=== PATIENT | male | born 1945 | race Caucasian/White ===

== ENCOUNTER 2021-01-29 10:36 | Day surgery (SDC) | payer OTHER, BC ==
[2021-01-27 15:59] VITALS: BMI 22.8
[2021-01-29] MEDS ORDERED: PROPOFOL 20 ML ONE (11:42)
[2021-01-29 12:06] VITALS: TEMP 98.2
[2021-01-29 13:39] VITALS: BP 122/52; PULSE 62
== END 2021-01-29 13:00 | disposition home or self-care (01) ==
LOC: FASU-ENDO 10:36
PROVIDERS: ATTEND Internal Medicine Gastroenterology
PROC: 0DBL8ZX Excision of Transverse Colon, Via Natural or Artificial Opening Endoscopic, Diagnostic (ICD-10-PCS; 2021-01-29)
PROC: 0DBM8ZX Excision of Descending Colon, Via Natural or Artificial Opening Endoscopic, Diagnostic (ICD-10-PCS; 2021-01-29)
PROC: 0DBK8ZX Excision of Ascending Colon, Via Natural or Artificial Opening Endoscopic, Diagnostic (ICD-10-PCS; principal; 2021-01-29 11:38)
DX: K63.89 Other specified diseases of intestine (principal); K52.839 Microscopic colitis, unspecified; K64.1 Second degree hemorrhoids; R19.7 Diarrhea, unspecified
CPT/HCPCS: 82962; 88305-TC

== ENCOUNTER 2021-02-03 08:01 | Day surgery (SDC) | payer OTHER, BC ==
[2021-02-01 10:36] VITALS: BMI 22.8
[2021-02-03] MEDS: PHENYLEPHRINE 2.5% OPHTH SOLN 15 ML BOTTLE ONE ×3 (08:40→08:50)
[2021-02-03] MEDS: CYCLOPENTOLATE 2% OPHTH SOLN 2 ML BOTTLE ONE ×3 (08:40→08:50)
[2021-02-03] MEDS: TROPICAMIDE 1% OPHTH SOLN 15 ML BOTTLE ONE ×3 (08:40→08:50)
[2021-02-03] MEDS: CIPROFLOXACIN 0.3% EYE DROPS 5 ML BOTTLE ONE ×3 (08:40→08:50)
[2021-02-03] MEDS ORDERED: MIDAZOLAM HCL 2 MG/2 ML SINGLE DOSE VIAL ONE (09:48)
[2021-02-03] MEDS ORDERED: TETRACAINE 0.5% OPHTH SOLN 2 ML BOTTLE ONE (09:51)
[2021-02-03] MEDS ORDERED: CARBACHOL 0.01% INTRA-OCULAR 1.5 ML VIAL ONE (09:51)
[2021-02-03] MEDS ORDERED: NEO/POLYMYX B SULF/DEXAMETH OPHTHALMIC 5ML BOTTLE ONE (09:51)
[2021-02-03] MEDS ORDERED: BSS (NA/CA/MG/K) BALANCED SALT SOLUTION OPHTH SOLN 15 ML BOTTLE ONE (09:51)
[2021-02-03] MEDS ORDERED: PHENYLEPHRINE/KETOROLAC 4 ML VIAL IO ONE (09:51)
[2021-02-03] MEDS ORDERED: LIDOCAINE 1% P/F 10 MG/ML VIAL ONE (09:51)
[2021-02-03 11:21] VITALS: TEMP 97.8
[2021-02-03 11:29] VITALS: BP 180/63; PULSE 64
== END 2021-02-03 11:15 | disposition home or self-care (01) ==
LOC: FASU 08:01
PROVIDERS: ATTEND Ophthalmology
PROC: 08RJ3JZ Replacement of Right Lens with Synthetic Substitute, Percutaneous Approach (ICD-10-PCS; principal; 2021-02-03 10:13)
DX: H26.8 Other specified cataract (principal)
CPT/HCPCS: 82962; J1097